=== PATIENT | male | born 1925 | race Caucasian/White ===

== ENCOUNTER 2017-04-21 16:39 | Inpatient (IN) | payer OTHER, MEDICARE ==
[~2017-04-21] VITALS: Ht 180.3 cm; Wt 76.8 kg
[~2017-04-21 16:39] MED LIST: ASPI81TA82; CHOL1CAP6 PO; CLOP75 PO; FERR140T PO; ISOS20TA38 PO; LIPI80TA16 PO; PROS5TAB2 PO; VITA50TA10 PO
[2017-04-21 17:07] VITALS: BP 170/72; PULSE 52; RESP 18; TEMP 98.3; O2SAT 100
--- NOTE | 2017-04-21 18:56 | RADRPT ---
EXAM DATE/TIME: 04/21/2017 18:14 [facility] COMPARISON: No previous studies available for comparison. INDICATIONS : Left hip pain after fall. MEDICAL HISTORY : None. SURGICAL HISTORY : None. ENCOUNTER: Initial ACUITY: 1 day PAIN SCORE: 10/10 LOCATION: Left hip. FINDINGS: There is a subcapital left femoral neck fracture. The femoral head is aligned with the acetabulum. No other fracture is seen. CONCLUSION: Left subcapital femoral neck fracture. Ted Schneider MD on April 21, 2017 at 18:53 Board Certified Radiologist. This report was verified electronically.
--- NOTE | 2017-04-21 18:57 | RADRPT ---
EXAM DATE/TIME: 04/21/2017 18:14 [facility] COMPARISON: CHEST PA & LAT, August 25, 2015, 23:52. CHEST SINGLE AP, July 04, 2012, 21:08. INDICATIONS : Short of breath. MEDICAL HISTORY : Hypertension. SURGICAL HISTORY : CABG. ENCOUNTER: Initial ACUITY: 1 day PAIN SCORE: 0/10 LOCATION: Bilateral chest FINDINGS: The patient is status post sternotomy. The cardiac silhouette is not enlarged. The lungs are hyperinf lated. There is diffuse increased interstitial markings present. A significant effusion is not seen. There is vague persistent density in the left apex. CONCLUSION: Hyperinflated lungs with diffuse increased interstitial markings which may represent underlying proce sses such as edema. Ted Schneider MD on April 21, 2017 at 18:54 Board Certified Radiologist. This report was verified electronically.
[2017-04-21] MEDS ORDERED: ONDANSETRON HCL 4 MG/2 ML VIAL IV PUSH ONE (19:30)
[2017-04-21] MEDS ORDERED: MORPHINE SULFATE 4 MG/ML INJ IV PUSH ONE (19:30)
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
[2017-04-21 19:47] VITALS: BP 175/97; PULSE 57; RESP 24; O2SAT 97
[2017-04-21 21:07] LABS: AUTOMATED NEUTROPHIL # 8.4 TH/MM3 (1.8-7.7); BASOPHIL % 0.2 % (0.0-2.0); BLOOD, URINE NEG (NEG); COMMENT (UR) CULT NOT INDICATED; CULTURE IF INDICATED CULT NOT INDICATED; EOSINOPHIL # 0.1 TH/MM3 (0-0.4); EOSINOPHIL % 0.7 % (0.0-4.0); GLUCOSE,URINE NEG (NEG); HEMATOCRIT 39.9 % (39.0-51.0); HEMO FLAGS DIFF FINAL; KETONE, URINE NEG (NEG); LYMPH % 10.5 % (9.0-44.0); LYMPHOCYTE # 1.1 TH/MM3 (1.0-4.8); MEAN CELL VOLUME 93.6 FL (80.0-100.0); MEAN CORPUSCULAR HEMOGLOBIN 31.7 PG (27.0-34.0); MEAN CORPUSCULAR HGB CONC 33.9 % (32.0-36.0); NEUT % 83.6 % (16.0-70.0); NITRITE,URINE NEG (NEG); PLATELET COUNT 140 TH/MM3 (150-450); RED BLOOD COUNT 4.26 MIL/MM3 (4.50-5.90); RED CELL DISTRIBUTION WIDTH 13.8 % (11.6-17.2); URINE COLOR YELLOW (YELLW/STRAW)
[2017-04-21 21:26] LABS: APTT (PATIENT) 25.4 SEC (24.3-30.1); PROTHROMBIN TIME - PATIENT 11.6 SEC (9.8-11.6)
[2017-04-21] MEDS ORDERED: ISOS20TA PO (21:27)
[2017-04-21] MEDS ORDERED: POTA10CA PO (21:27)
[2017-04-21] MEDS ORDERED: DOXA1TAB34 PO (21:27)
[2017-04-21] MEDS ORDERED: ATOR40TA16 PO (21:27)
[2017-04-21] MEDS ORDERED: FERR325T8 PO (21:27)
[2017-04-21] MEDS ORDERED: FINA5TAB2 PO (21:27)
[2017-04-21] MEDS ORDERED: ASPI81CH CHEW (21:27)
[2017-04-21 21:33] LABS: BICARBONATE 23.2 MEQ/L (21.0-32.0); MAGNESIUM 2.1 MG/DL (1.5-2.5); POTASSIUM 4.3 MEQ/L (3.5-5.1)
[2017-04-21] MEDS ORDERED: SODIUM CHLORIDE 0.9% FLUSH 10 ML FLUSH IV FLUSH PRN (22:15)
[2017-04-21] MEDS ORDERED: NALOXONE HCL 0.4 MG/ML AMP IV PUSH PRN (22:15)
[2017-04-21 23:00] VITALS: BP 157/72; PULSE 63; RESP 18; TEMP 96.9; O2SAT 94
[2017-04-21 23:23] VITALS: BP 157/72; PULSE 63; RESP 18; TEMP 96.9; O2SAT 94
[2017-04-21] MEDS: MORPHINE SULFATE 4 MG/ML INJ IV PUSH PRN (23:49)
[2017-04-22] VITALS (7 sets, daily range): BP systolic 121–140; BP diastolic 48–62; PULSE 47–97; RESP 16–57; TEMP 96.1–98.6; O2SAT 92–100
[2017-04-22] MEDS ORDERED: POVIDONE IODINE 5% (ANTISEPSIS KIT) 4 APPLICATIONS EACH NARE PRN (04:00)
[2017-04-22] MEDS ORDERED: INSULIN HUMAN REGULAR 1,000 UNITS/10 ML VIAL SQ PRN (04:00)
[2017-04-22] MEDS ORDERED: CHLORHEXIDINE GLUCONATE 2 % 1 PACK (2 CLOTHS) TOPICAL PRN (04:00)
[2017-04-22] MEDS ORDERED: LACTATED RINGER'S 1000 ML IV PRN (04:00)
[2017-04-22] MEDS ORDERED: SODIUM CHLORID 0.9% 500 ML IV PRN (04:00)
[2017-04-22] MEDS: MORPHINE SULFATE 4 MG/ML INJ IV PUSH PRN (04:44)
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
[2017-04-22] MEDS ORDERED: VITA2000 PO (06:47)
[2017-04-22] MEDS ORDERED: HYDR-3580 PO (06:47)
[2017-04-22] MEDS ORDERED: ERGO1CAP30 PO (06:47)
[2017-04-22] MEDS ORDERED: CALCTAB19 PO (06:47)
[2017-04-22] MEDS ORDERED: XARE10TA PO (06:47)
[2017-04-22] MEDS ORDERED: WALKER/ADULT/FO1 MIS (06:47)
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
--- NOTE | 2017-04-22 08:42 | HHI.PR ---
Subjective Remarks in no acute distress. pain is fairly controlled. no chest pain or sob. Objective Vitals Vital Signs Date Time Temp Pulse Resp B/P (MAP) Pulse Ox O2 Delivery O2 Flow Rate FiO2 04/22/17 04:10 96.2 50 18 121/52 (75) 95 04/22/17 00:00 Room Air 04/21/17 23:23 96.9 63 18 157/72 (100) 94 04/21/17 23:00 04/21/17 19:47 57 24 175/97 (123) 97 Room Air 04/21/17 17:07 98.3 52 18 170/72 (104) 100 I/O 04/21/17 04/21/17 04/21/17 04/22/17 04/22/17 04/22/17 07:00 15:00 23:00 07:00 15:00 23:00 Intake Total 360 ml Output Total 150 ml Balance 210 ml Intake Oral 360 ml Output Urine Total 150 ml # Voids 1 # Bowel Movements 0 Result Diagram: 04/21/17201904/21/172019 Imaging Last Impressions Hip and Pelvis X-Ray 04/21/17 0000 Signed Impressions: Service Date/Time: Friday, April 21, 2017 18:14 - CONCLUSION: Left subcapital femoral neck fracture. Ted Schneider MD Chest X-Ray 04/21/17 0000 Signed Impressions: Service Date/Time: Friday, April 21, 2017 18:14 - CONCLUSION: Hyperinflated lungs with diffuse increased interstitial markings which may represent underlying processes such as edema. Ted Schneider MD Objective Remarks GENERAL: This is a well-nourished, well-developed patient, in no apparent distress. CARDIOVASCULAR: Regular rate and regular rhythm without murmurs, gallops, or rubs. RESPIRATORY: Clear to auscultation. Breath sounds equal bilaterally. No wheezes , rales, or rhonchi. GASTROINTESTINAL: Abdomen soft, non-tender, nondistended. Normal, active bowel sounds MUSCULOSKELETAL: Extremities without clubbing, cyanosis, or edema. NEURO: Alert & Oriented x4 to person, place, time, situation. Moves all ext x4 Medications and IVs Current Medications Morphine Sulfate (Morphine Inj) 4 mg ONCE ONCE IV PUSH Last administered on t 20:50; Start 04/21/17 at 19:30; Stop 04/21/17 at 19:31; Status DC Ondansetron HCl (Zofran Inj) 4 mg ONCE ONCE IV PUSH Last administered on 20:50; Start 04/21/17 at 19:30; Stop 04/21/17 at 19:31; Status DC Sodium Chloride (NS Flush) 2 ml UNSCH PRN IV FLUSH FLUSH AFTER USING IV ACCESS ; Start 04/21/17 at 22:15 Sodium Chloride (NS Flush) 2 ml BID IV FLUSH ; Start 04/22/17 at 09:00 Naloxone HCl (Narcan Inj) 0.4 mg UNSCH PRN IV PUSH SEE LABEL COMMENTS; Start 04/21/17 at 22:15 Morphine Sulfate (Morphine Inj) 2 mg Q3H PRN IV PUSH pain >5 Last administered on 04/22/17 04:44; Start 04/21/17 at 22:15 Lactated Ringer's 1,000 ml @ 30 mls/hr Q24H PRN IV SEE LABEL COMMENTS; Start 04/22/17 at 04:00; Stop 04/25/17 at 03:59 Sodium Chloride 500 ml @ 30 mls/hr [id number] PRN IV SEE LABEL COMMENTS; Start at 04:00; Stop 04/25/17 at 03:59 Povidone Iodine (Betadine 5% Antisepsis Kit) 1 applic NIGHT ASSISTANT PRN EACH NARE SEE LABEL COMMENTS; Start 04/22/17 at 04:00; Stop 04/25/17 at 03:59 Chlorhexidine Gluconate (Chlorhexidine 2% Cloth) 3 pack NIGHT ASSISTANT PRN TOPICAL SEE LABEL COMMENTS; Start 04/22/17 at 04:00; Stop 04/25/17 at 03:59 Insulin Human Regular (NovoLIN R INJ) See Protocol Table ... NIGHT ASSISTANT PRN SQ SEE PROTOCOL TABLE; Start 04/22/17 at 04:00; Stop 04/25/17 at 03:59 A/P Assessment and Plan A/P - left femoral fracture continue pain control- ortho consult appreciated and plan for surgical repair today. -CAD- s/p CABG hold aspirin and Xarelto for now- resume imdur and statin -DVT prophylaxis- pending ortho evaluation Ever Moore MD Apr 22, 2017 08:42
[2017-04-22] MEDS ORDERED: FINASTERIDE 5 MG TAB PO SCH (09:00)
[2017-04-22] MEDS ORDERED: ISOSORBIDE MONONITRATE 20 MG TAB PO SCH (09:00)
[2017-04-22 10:06] LABS: BASOPHIL % 0.4 % (0.0-2.0); EOSINOPHIL # 0.4 TH/MM3 (0-0.4); EOSINOPHIL % 4.4 % (0.0-4.0); HEMATOCRIT 37.4 % (39.0-51.0); HEMO FLAGS DIFF FINAL; LYMPH % 13.5 % (9.0-44.0); LYMPHOCYTE # 1.1 TH/MM3 (1.0-4.8); MEAN CELL VOLUME 94.8 FL (80.0-100.0); MEAN CORPUSCULAR HEMOGLOBIN 32.5 PG (27.0-34.0); MEAN CORPUSCULAR HGB CONC 34.3 % (32.0-36.0); MONO % 10.1 % (0.0-8.0); NEUT % 71.6 % (16.0-70.0); PLATELET COUNT 116 TH/MM3 (150-450); RED BLOOD COUNT 3.94 MIL/MM3 (4.50-5.90); RED CELL DISTRIBUTION WIDTH 13.9 % (11.6-17.2); WHITE BLOOD COUNT 8.4 TH/MM3 (4.0-11.0)
[2017-04-22] MEDS: SODIUM CHLORIDE 0.9% FLUSH 10 ML FLUSH IV FLUSH SCH ×2 (10:30→21:00)
[2017-04-22 10:32] LABS: BICARBONATE 24.5 MEQ/L (21.0-32.0); POTASSIUM 3.9 MEQ/L (3.5-5.1)
[2017-04-22] MEDS ORDERED: ceFAZolin 2 GM PREMIX 50 ML ONE (11:27)
[2017-04-22] MEDS ORDERED: VANCOMYCIN HCL 1000 MG VIAL ONE (11:28)
[2017-04-22] MEDS ORDERED: GENTAMICIN SULFATE 80 MG/2 ML VIAL ONE (11:28)
[2017-04-22] MEDS ORDERED: ACETAMINOPHEN 1000 MG/100 ML 100 ML IV ONE (11:28)
[2017-04-22] MEDS ORDERED: FAMOTIDINE 20 MG/2 ML VIAL ONE (11:28)
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
[2017-04-22] MEDS ORDERED: TRANEXAMIC ACID IV SCH (12:00)
[2017-04-22] MEDS ORDERED: SODIUM CHLORIDE 0.9% IV SCH (12:00)
[2017-04-22] MEDS ORDERED: GLYCOPYRROLATE 1 MG/5 ML SYRINGE IV PUSH ONE (12:00)
[2017-04-22] MEDS ORDERED: DEXAMETHASONE SOD PHOS 4 MG/ML VIAL IV ONE (12:00)
[2017-04-22] MEDS ORDERED: PROPOFOL 200 MG/20 ML AMP IV ONE (12:00)
[2017-04-22] MEDS ORDERED: ePHEDrine/NS 25 MG/5 ML SYR IV ONE (12:00)
[2017-04-22] MEDS ORDERED: ROCURONIUM INJ 50 MG/5 ML SYRINGE IV PUSH ONE (12:00)
[2017-04-22] MEDS ORDERED: PHENYLEPH/NS 1000 MCG/10 ML SYR IV ONE (12:00)
[2017-04-22] MEDS ORDERED: NEOSTIGMINE 3 MG/3 ML SYR IV ONE (12:00)
[2017-04-22] MEDS ORDERED: MIDAZOLAM HCL 2 MG/2 ML VIAL IV ONE (12:00)
[2017-04-22] MEDS ORDERED: SODIUM CHLORIDE 0.9% FLUSH 5 ML FLUSH IVF PRN (12:45)
[2017-04-22] MEDS ORDERED: MORPHINE SULFATE 4 MG/ML INJ IV PUSH PRN (12:45)
[2017-04-22] MEDS ORDERED: Post-op Orders (for Pharmacy) MISC XX ONE (12:45)
--- NOTE | 2017-04-22 12:47 | PD.OP ---
cc: Aneesh Devlin MD Operative Report Date of Surgery: Apr 22, 2017 Preoperative Diagnosis: Left femoral neck fracture Postoperative Diagnosis: Procedure: Left hip bipolar arthroplasty Anesthesia: Gen. Surgeon: Aneesh Devlin Saw Feeder(s): KAZ Remy PA-C The surgical procedure was assisted by my physician seo assistant. My P.A. presence was necessary throughout this case for the manipulation and positioning of the surgical extremity. My P.A. was assisting me throughout the duration of this procedure. The skill set of a physician seo assistant was medically necessary to complete this procedure. During the surgical case the surgical endoscopist was working at the back table and the physician seo assistant was directly assisting me. Operation and Findings: PLAN OF ACTIVITY Weight bear as tolerated. IMPLANTS USED DePuy Corail size [15] stem with size [53] bipolar head and [+1] neck. DRAIN: 7 mm Reggie-Goncalves drain DETAILS OF PROCEDURE This patient was brought into the operating room and placed on the OR table. The patient was given anesthesia. The patient received IV antibiotics. The patient was then placed in lateral decubitus position. The hip and leg were prepped with alcohol, followed by Hibiclens and draped in a usual sterile fashion. Clean air was used for this procedure. Time out procedure was performed. The procedure began with a 5 inch incision over the posterolateral hip. The subcutaneous tissue was dissected with the Bovie. The iliotibial band were split in line with fibers. The Charnley retractor was placed. The piriformis and external rotators were released from the femur and tagged with a #1 Vicryl suture. The capsule is now incised and tagged with #1 Vicryl. The femoral neck fracture was now visualized. A corkscrew was now used to remove the femoral head. The femoral head was sized and measured. Soft tissue was now protected. The hip skid was placed underneath the femoral neck. An oscillating saw was used to make a femoral neck cut. At this point attention was turned to preparation of the proximal femur. A box osteotome was used to remove the lateral cortex of the femoral neck. The T- handle reamer was used to open the femoral canal. Next, the canal was broached. A lateralizing reamer was used to help lateralize the prosthesis. At this point a trial head and neck were placed. The hip was reduced. The patient was found to have excellent stability with good range of motion. Trial components were removed. Soft tissue and bone were thoroughly irrigated. A Corail stem was now opened. The stem was now impacted into the proximal femur. Care was taken to keep appropriate anteversion. The head and neck were now impacted onto the stem. The hip was again reduced. The hip was found to have good range of motion and good stability. Leg lengths were clinically equal. The wound was thoroughly irrigated. The capsule, piriformis and iliotibial band were closed with #1 Vicryl. Subcutaneous tissue was closed with 3-0 Vicryl. The skin was closed with nae. A sterile dressing was applied with Primapore. The patient was placed into a knee immobilizer. The patient was awakened and transferred to the recovery room in stable condition. Needle and sponge counts were correct. Aneesh Devlin MD Apr 22, 2017 12:47
[2017-04-22] MEDS ORDERED: DO NOT ADM ANY ANTICOAGULANT DRUGS PRN (13:02)
[2017-04-22] MEDS ORDERED: ERGOCALCIFEROL (VIT D2) 50,000 UNIT CAP PO ONE (13:15)
[2017-04-22] MEDS ORDERED: *ENALAPRILAT 1.25 MG/ML VIAL PERIprocedural Use ONLY ONE (13:31)
[2017-04-22] MEDS ORDERED: *morphine SULFATE 8 MG/ML PERIprocedure ONLY ONE (14:06)
--- NOTE | 2017-04-22 14:27 | RADRPT ---
EXAM DATE/TIME: 04/22/2017 13:30 [facility] COMPARISON: HIP LEFT (AP&LAT 2/3VWS) W AP PELVIS, April 21, 2017, 18:14. INDICATIONS : Post op left hip surgery. MEDICAL HISTORY : Unobtainable. SURGICAL HISTORY : Unobtainable. ENCOUNTER: Initial ACUITY: 1 day PAIN SCORE: Non-responsive. LOCATION: Left hip FINDINGS: Interval left hip arthroplasty. Arthroplasty components are in anatomic alignment. No new acute bony fractures. Postsurgical soft tissue changes in the left hip region. CONCLUSION: 1. Status post left hip arthroplasty in anatomic alignment without significant acute bony fracture. Sachin George MD on April 22, 2017 at 14:25 Board Certified Radiologist. This report was verified electronically.
--- NOTE | 2017-04-22 16:42 | EKG ---
Date Performed: 04/22/2017 Time Performed: 05:38:14 PTAGE: 89 years EKG: Sinus bradycardia with borderline 1st degree A-V block Prolonged QT interval Consider left atrial abnormality Possible septal infarct - age undetermined Inferior/lateral T wave changes are non specific Compared to prior tracing no significant change Abnormal ECG PREVIOUS TRACING : 08/25/15 @ 2230 DOCTOR: Glenis Sage Interpretating Date/Time 04/22/2017 16:39:20
[2017-04-22] MEDS: SODIUM CHLORIDE 0.9% FLUSH 5 ML FLUSH IVF SCH (21:00)
[2017-04-22] MEDS: DOXAZOSIN MESYLATE 4 MG TAB PO SCH (21:32)
[2017-04-22] MEDS: ATORVASTATIN 40 MG TAB PO SCH (21:32)
[2017-04-23] VITALS (8 sets, daily range): BP systolic 105–136; BP diastolic 50–58; PULSE 50–65; RESP 16–18; TEMP 97.1–98.2; O2SAT 92–95
[2017-04-23] MEDS: ceFAZolin 2 GM PREMIX 50 ML IV SCH ×2 (01:49→06:38)
[2017-04-23 06:17] LABS: HEMATOCRIT 35.1 % (39.0-51.0)
[2017-04-23 06:21] LABS: REVIEW FLAG FINAL
[2017-04-23] MEDS: ISOSORBIDE MONONITRATE 30 MG TAB PO SCH (06:38)
--- NOTE | 2017-04-23 06:50 | PD.ORT.PN ---
Subjective Subjective Remarks Resting comfortably with no new complaints. Objective Vitals Vital Signs Date Time Temp Pulse Resp B/P (MAP) Pulse Ox O2 Delivery O2 Flow Rate FiO2 04/23/17 05:25 97.6 55 17 136/53 (80) 92 04/23/17 01:47 97.5 50 17 133/54 (80) 92 04/22/17 21:04 97.6 50 17 133/54 (80) 92 04/22/17 19:08 Nasal Cannula 2.00 04/22/17 16:45 96.1 57 57 133/48 (76) 98 04/22/17 16:00 96.5 49 16 140/49 (79) 100 04/22/17 15:05 97 Nasal Cannula 3.00 04/22/17 14:15 97.5 53 15 155/65 (95) 99 Nasal Cannula 3 04/22/17 14:00 54 15 153/70 (97) 99 Nasal Cannula 3 04/22/17 13:45 55 15 176/72 (106) 99 Nasal Cannula 3 04/22/17 13:30 58 15 155/67 (96) 99 Nasal Cannula 3 04/22/17 13:15 56 15 176/74 (108) 99 Simple Mask 6 04/22/17 13:09 97.5 58 15 176/72 (106) 99 Simple Mask 6 04/22/17 08:00 97.3 47 18 137/62 (87) 97 I/O 04/22/17 04/22/17 04/22/17 04/23/17 04/23/17 04/23/17 07:00 15:00 23:00 07:00 15:00 23:00 Intake Total 360 ml 750 ml 240 ml 266 ml Output Total 150 ml 750 ml 70 ml 410 ml Balance 210 ml 0 ml 170 ml -144 ml Intake Oral 360 ml 240 ml 120 ml IV Total 50 ml 146 ml Other 700 ml Output Urine Total 150 ml 600 ml 350 ml Drainage Total 70 ml 60 ml Estimated Blood Loss 150 ml # Voids 1 1 # Bowel Movements 0 0 0 Result Diagram: 04/23/17 0551 04/22/17 0820 Imaging Last 24 hours Impressions Hip and Pelvis X-Ray 04/22/17 1243 Signed Impressions: Service Date/Time: Saturday, April 22, 2017 13:30 - CONCLUSION: 1. Status post left hip arthroplasty in anatomic alignment without significant acute bony fracture. Sachin George MD Objective Remarks Left lower extremity: Clean dry dressings intact with drain in place. Knee immobilizer. Distally intact sensation good capillary refills and strong dorsiflexion plantar flexion of foot Assessment & Plan Assessment and Plan Left hip hemiarthroplasty POD 1 Physical therapy: Weightbearing as tolerated with posterior hip precautions Knee immobilizer when in bed Lovenox Incentive spirometry and SCDs Discharge planning to rehabilitation for tomorrow or Friday Begin daily dressing changes POD 2 with removal of drain Follow-up with Dr. Devlin or PA in 2 weeks Valentin Rayo Jr. Apr 23, 2017 06:50
[2017-04-23] MEDS ORDERED: ISOSORBIDE MONONITRATE 20 MG TAB PO SCH (08:53)
[2017-04-23] MEDS: CHOLECALCIFEROL (VIT D3) 5000 UNIT CAP PO SCH (08:56)
[2017-04-23] MEDS: FINASTERIDE 5 MG TAB PO SCH (08:56)
[2017-04-23] MEDS: SODIUM CHLORIDE 0.9% FLUSH 10 ML FLUSH IV FLUSH SCH ×2 (08:57→21:00)
[2017-04-23] MEDS: SODIUM CHLORIDE 0.9% FLUSH 5 ML FLUSH IVF SCH ×2 (08:57→21:00)
--- NOTE | 2017-04-23 11:20 | HHI.PR ---
Subjective Remarks resting comfortably in no distress. pain is controlled. no new complaints. Objective Vitals Vital Signs Date Time Temp Pulse Resp B/P (MAP) Pulse Ox O2 Delivery O2 Flow Rate FiO2 04/23/17 08:00 97.1 56 18 130/58 (82) 95 04/23/17 05:25 97.6 55 17 136/53 (80) 92 04/23/17 01:47 97.5 50 17 133/54 (80) 92 04/22/17 21:04 97.6 50 17 133/54 (80) 92 04/22/17 19:08 Nasal Cannula 2.00 04/22/17 16:45 96.1 57 57 133/48 (76) 98 04/22/17 16:00 96.5 49 16 140/49 (79) 100 04/22/17 15:05 97 Nasal Cannula 3.00 04/22/17 14:15 97.5 53 15 155/65 (95) 99 Nasal Cannula 3 04/22/17 14:00 54 15 153/70 (97) 99 Nasal Cannula 3 04/22/17 13:45 55 15 176/72 (106) 99 Nasal Cannula 3 04/22/17 13:30 58 15 155/67 (96) 99 Nasal Cannula 3 04/22/17 13:15 56 15 176/74 (108) 99 Simple Mask 6 04/22/17 13:09 97.5 58 15 176/72 (106) 99 Simple Mask 6 I/O 04/22/17 04/22/17 04/22/17 04/23/17 04/23/17 04/23/17 07:00 15:00 23:00 07:00 15:00 23:00 Intake Total 360 ml 750 ml 240 ml 266 ml 50 ml Output Total 150 ml 750 ml 70 ml 410 ml Balance 210 ml 0 ml 170 ml -144 ml 50 ml Intake Oral 360 ml 240 ml 120 ml IV Total 50 ml 146 ml 50 ml Other 700 ml Output Urine Total 150 ml 600 ml 350 ml Drainage Total 70 ml 60 ml Estimated Blood Loss 150 ml # Voids 1 1 # Bowel Movements 0 0 0 Result Diagram: 04/23/17 0551 04/22/17 0820 Imaging Last Impressions Hip and Pelvis X-Ray 04/22/17 1243 Signed Impressions: Service Date/Time: Saturday, April 22, 2017 13:30 - CONCLUSION: 1. Status post left hip arthroplasty in anatomic alignment without significant acute bony fracture. Sachin George MD Chest X-Ray 04/21/17 0000 Signed Impressions: Service Date/Time: Friday, April 21, 2017 18:14 - CONCLUSION: Hyperinflated lungs with diffuse increased interstitial markings which may represent underlying processes such as edema. Ted Schneider MD Objective Remarks GENERAL: This is a well-nourished, well-developed patient, in no apparent distress. CARDIOVASCULAR: Regular rate and regular rhythm without murmurs, gallops, or rubs. RESPIRATORY: Clear to auscultation. Breath sounds equal bilaterally. No wheezes , rales, or rhonchi. GASTROINTESTINAL: Abdomen soft, non-tender, nondistended. Normal, active bowel sounds MUSCULOSKELETAL: Extremities without clubbing, cyanosis, or edema. NEURO: Alert & Oriented x4 to person, place, time, situation. Moves all ext x4 Procedures left hip bipolar arthroplasty Medications and IVs Current Medications Morphine Sulfate (Morphine Inj) 4 mg ONCE ONCE IV PUSH Last administered on 20:50; Start 04/21/17 at 19:30; Stop 04/21/17 at 19:31; Status DC Ondansetron HCl (Zofran Inj) 4 mg ONCE ONCE IV PUSH Last administered on 20:50; Start 04/21/17 at 19:30; Stop 04/21/17 at 19:31; Status DC Sodium Chloride (NS Flush) 2 ml UNSCH PRN IV FLUSH FLUSH AFTER USING IV ACCESS ; Start 04/21/17 at 22:15 Sodium Chloride (NS Flush) 2 ml BID IV FLUSH Last administered on 04/23/17 08: 57; Start 04/22/17 at 09:00 Naloxone HCl (Narcan Inj) 0.4 mg UNSCH PRN IV PUSH SEE LABEL COMMENTS; Start 04/21/17 at 22:15 Morphine Sulfate (Morphine Inj) 2 mg Q3H PRN IV PUSH pain >5 Last administered on 04/22/17 04:44; Start 04/21/17 at 22:15; Stop 04/22/17 at 13:02; Status DC Lactated Ringer's 1,000 ml @ 50 mls/hr Q20H PRN IV SEE LABEL COMMENTS; Start 04/22/17 at 04:00; Stop 04/25/17 at 03:59 Sodium Chloride 500 ml @ 30 mls/hr [id number] PRN IV SEE LABEL COMMENTS; Start at 04:00; Stop 04/25/17 at 03:59 Povidone Iodine (Betadine 5% Antisepsis Kit) [address] [employer] PRN EACH NARE SEE LABEL COMMENTS; Start 04/22/17 at 04:00; Stop 04/25/17 at 03:59 Chlorhexidine Gluconate (Chlorhexidine 2% Cloth) [address] [employer] PRN TOPICAL SEE LABEL COMMENTS; Start 04/22/17 at 04:00; Stop 04/25/17 at 03:59 Insulin Human Regular (NovoLIN R INJ) See Protocol Table ... STREET [employer] PRN SQ SEE PROTOCOL TABLE; Start 04/22/17 at 04:00; Stop 04/25/17 at 03:59 Atorvastatin Calcium (Lipitor) 40 mg HS PO Last administered on 04/22/17 21:32 ; Start 04/22/17 at 21:00 Doxazosin Mesylate (Cardura) 4 mg HS PO Last administered on 04/22/17 21:32; Start 04/22/17 at 21:00 Finasteride (Proscar) 20 mg DAILY PO ; Start 04/22/17 at 09:00; Stop 04/22/17 at 09:14; Status DC Isosorbide Mononitrate (Ismo) 30 mg DAILY PO ; Start 04/22/17 at 09:00; Stop at 09:00; Status DC Isosorbide Mononitrate (Ismo) 30 mg DAILY@0700 PO ; Start 04/23/17 at 08:53; Stop 04/23/17 at 08:53; Status DC Finasteride (Proscar) 5 mg DAILY PO Last administered on 04/23/17 08:56; Start 04/23/17 at 09:00 Isosorbide Mononitrate (Imdur) 30 mg DAILY@07 PO Last administered on 06:38; Start 04/23/17 at 07:00 Cefazolin Sodium/ Dextrose 50 ml @ As Directed STK-MED ONCE .ROUTE Last administered on 10/3/17at 12:08; Start 04/22/17 at 11:27; Stop 04/22/17 at 11:28 ; Status DC Gentamicin Sulfate (Gentamicin Inj) 240 mg STK-MED ONCE .ROUTE Last administered on 04/22/17 12:15; Start 04/22/17 at 11:28; Stop 04/22/17 at 11:29 ; Status DC Vancomycin HCl (Vancomycin Inj) 1,000 mg STK-MED ONCE .ROUTE Last administered on 04/22/17 12:10; Start 04/22/17 at 11:28; Stop 04/22/17 at 11:29; Status DC Acetaminophen 100 ml @ As Directed STK-MED ONCE IV ; Start 04/22/17 at 11:28; Stop 04/22/17 at 11:29; Status DC Famotidine (Pepcid Inj) 20 mg STK-MED ONCE .ROUTE ; Start 04/22/17 at 11:28; Stop 04/22/17 at 11:29; Status DC Tranexamic Acid 1160 mg/Sodium Chloride 111.6 ml @ 200 mls/hr UNSCH IV ; Start 04/22/17 at 12:00; Stop 04/22/17 at 18:00; Status DC IV Flush (NS Flush) 2 ml UNSCH PRN IVF FLUSH AFTER USING IV ACCESS; Start 04/22 at 12:45 IV Flush (NS Flush) 2 ml BID IVF Last administered on 04/22/17 21:00; Start 04/22/17 at 21:00 Cefazolin Sodium/ Dextrose 50 ml @ 100 mls/hr Q6H IV Last administered on 04/23 06:38; Start 04/22/17 at 18:00; Stop 04/23/17 at 06:29; Status DC Miscellaneous Information (Post-op Orders (for Pharmacy)) STAT ONCE XX ; Start 04/22/17 at 12:45; Stop 04/22/17 at 13:52; Status DC Enoxaparin Sodium (Lovenox Inj) 30 mg Q24H SQ ; Start 04/23/17 at 13:00 Acetaminophen/ Hydrocodone Bitart ([place] 5-325 Mg) 1 tab Q3H PRN PO PAIN 3<10 ; Start 04/22/17 at 12:45 Morphine Sulfate (Morphine Inj) 3 mg Q3H PRN IV PUSH break thru pain Last administered on 04/23/17 01:50; Start 04/22/17 at 12:45 Ergocalciferol (Drisdol) 50,000 units ONCE ONCE PO Last administered on 18:57; Start 04/22/17 at 13:15; Stop 04/22/17 at 13:16; Status DC Cholecalciferol (Vitamin D3) 5,000 units DAILY PO Last administered on 08:56; Start 04/23/17 at 09:00 Enalaprilat (*VASOTEC INJ PERIprocedural Use ONLY) 1.25 mg STK-MED ONCE .ROUTE ; Start 04/22/17 at 13:31; Stop 04/22/17 at 13:32; Status DC Miscellaneous Information ALL NURSING DEPARTME... UNSCH PRN .XX SEE LABEL COMMENTS; Start 04/22/17 at 13:02; Stop 04/23/17 at 13:01 Morphine Sulfate (*morphine INJ PERIprocedure ONLY) 8 mg STK-MED ONCE .ROUTE Last administered on 04/22/17 14:06; Start 04/22/17 at 14:06; Stop 04/22/17 at 14:07; Status DC A/P Assessment and Plan A/P - left femoral fracture s/p left hip bipolar arthroplasty continue pain control- management per ortho. -CAD- s/p CABG resume aspirin and Xarelto when ok with ortho- resumed imdur and statin -DVT prophylaxis- on Lovenox- per ortho. Discharge Planning when cleared by ortho. Ever Moore MD Apr 23, 2017 11:20
[2017-04-23] MEDS: ENOXAPARIN SODIUM 30 MG/0.3 ML SYRINGE SQ SCH (13:30)
--- NOTE | 2017-04-23 16:04 | ECHRPT ---
Indication: CARDIAC MURMUR CONCLUSIONS Mildly dilated left ventricle. Mild concentric left ventricular hypertrophy. The left ventricular systolic function is normal with an estimated ejection fraction in the range of 55-60%. There is diffuse global hypokinesis with distinct regional wall motion abnormalities. The left atrial size is [id number] dilated. Trace mitral valve regurgitation. Aortic valve sclerosis is present. Mild aortic valve regurgitation. There is trace tricuspid valve regurgitation. There is mild pulmonary hypertension present (range 40-50 mmHg). BP: 137 / 62 HR: 47 Rhythm: Sinus Technical Quality:Fair FINDINGS LEFT VENTRICLE Mildly dilated left ventricle. Mild concentric left ventricular hypertrophy. The left ventricular systolic function is normal with an estimated ejection fraction in the range of 55-60%. There is diffuse global hypokinesis with distinct regional wall motion abnormalities. LEFT ATRIUM The left atrial size is [id number] dilated. MITRAL VALVE Trace mitral valve regurgitation. AORTIC VALVE Aortic valve sclerosis is present. Mild aortic valve regurgitation. TRICUSPID VALVE There is trace tricuspid valve regurgitation. There is estimated mild pulmonary hypertension present (range 40-50 mmHg). Deepak Tim MD, FACC (Electronically Signed) Final Date:23 April 2017 16:03
[2017-04-23] MEDS: ACETAMINOPHEN/HYDROcodone 325 MG/5 MG TAB PO PRN (16:29)
[2017-04-23] MEDS: ATORVASTATIN 40 MG TAB PO SCH (21:21)
[2017-04-23] MEDS: DOXAZOSIN MESYLATE 4 MG TAB PO SCH (21:21)
[2017-04-24 00:15] VITALS: BP 117/54; PULSE 57; RESP 16; TEMP 97.7; O2SAT 94
[2017-04-24 04:15] VITALS: BP 133/52; PULSE 60; RESP 16; TEMP 98.7; O2SAT 94
[2017-04-24] MEDS: ISOSORBIDE MONONITRATE 30 MG TAB PO SCH (06:47)
--- NOTE | 2017-04-24 06:50 | PD.ORT.PN ---
Subjective Subjective Remarks POD 2 s/p left hip hemiarthroplasty pain controlled. resting comfortably Objective Vitals Vital Signs Date Time Temp Pulse Resp B/P (MAP) Pulse Ox O2 Delivery O2 Flow Rate FiO2 04/24/17 04:15 98.7 60 16 133/52 (79) 94 04/24/17 00:15 97.7 57 16 117/54 (75) 94 04/23/17 21:38 95 Nasal Cannula 2.00 04/23/17 19:16 98.2 61 16 105/56 (72) 93 04/23/17 16:10 98.1 65 17 123/50 (74) 04/23/17 13:05 95 Nasal Cannula 2.00 04/23/17 11:35 97.7 59 18 136/51 (79) 95 04/23/17 08:00 97.1 56 18 130/58 (82) 95 I/O 04/23/17 04/23/17 04/23/17 04/24/17 04/24/17 04/24/17 07:00 15:00 23:00 07:00 15:00 23:00 Intake Total 266 ml 700 ml 120 ml Output Total 410 ml 250 ml 210 ml Balance -144 ml 450 ml -90 ml Intake Oral 120 ml 650 ml 120 ml IV Total 146 ml 50 ml Output Urine Total 350 ml 250 ml 150 ml Drainage Total 60 ml 60 ml # Bowel Movements 0 0 0 Result Diagram: 04/23/17 0551 04/22/17 0820 Imaging Last 24 hours Impressions Hip and Pelvis X-Ray 04/22/17 1243 Signed Impressions: Service Date/Time: Saturday, April 22, 2017 13:30 - CONCLUSION: 1. Status post left hip arthroplasty in anatomic alignment without significant acute bony fracture. Sachin George MD Objective Remarks Left lower extremity: Clean dry dressings intact with drain in place. Knee immobilizer. Distally intact sensation good capillary refills and strong dorsiflexion plantar flexion of foot Assessment & Plan Assessment and Plan 1) Left hip hemiarthroplasty POD 2 Physical therapy: Weightbearing as tolerated with posterior hip precautions Knee immobilizer when in bed Lovenox Incentive spirometry and SCDs ortho clear for Dc to rehab Begin daily dressing changes POD 2 with removal of drain Follow-up with Dr. Devlin or PA in 2 weeks Jeyson Lezama Apr 24, 2017 06:50
[2017-04-24 08:00] VITALS: BP 109/51; PULSE 56; RESP 18; TEMP 98.4; O2SAT 92
[2017-04-24] MEDS: SODIUM CHLORIDE 0.9% FLUSH 5 ML FLUSH IVF SCH (09:00)
[2017-04-24] MEDS: CHOLECALCIFEROL (VIT D3) 5000 UNIT CAP PO SCH (10:59)
[2017-04-24] MEDS: FINASTERIDE 5 MG TAB PO SCH (10:59)
[2017-04-24] MEDS: SODIUM CHLORIDE 0.9% FLUSH 10 ML FLUSH IV FLUSH SCH (11:00)
[2017-04-24] MEDS: ACETAMINOPHEN/HYDROcodone 325 MG/5 MG TAB PO PRN ×2 (11:01→13:54)
[2017-04-24] MEDS ORDERED: ASPI81CH CHEW (11:13)
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
--- NOTE | 2017-04-24 11:30 | HHI.PR ---
Subjective Remarks in no distress. pain is fairly controlled. d/w the RN and no acute issues over night. Objective Vitals Vital Signs Date Time Temp Pulse Resp B/P (MAP) Pulse Ox O2 Delivery O2 Flow Rate FiO2 04/24/17 08:00 98.4 56 18 109/51 (70) 92 04/24/17 04:15 98.7 60 16 133/52 (79) 94 04/24/17 00:15 97.7 57 16 117/54 (75) 94 04/23/17 21:38 95 Nasal Cannula 2.00 04/23/17 19:16 98.2 61 16 105/56 (72) 93 04/23/17 16:10 98.1 65 17 123/50 (74) 04/23/17 13:05 95 Nasal Cannula 2.00 04/23/17 11:35 97.7 59 18 136/51 (79) 95 I/O 04/23/17 04/23/17 04/23/17 04/24/17 04/24/17 04/24/17 07:00 15:00 23:00 07:00 15:00 23:00 Intake Total 266 ml 700 ml 120 ml 60 ml Output Total 410 ml 250 ml 210 ml 410 ml Balance -144 ml 450 ml -90 ml -350 ml Intake Oral 120 ml 650 ml 120 ml 60 ml IV Total 146 ml 50 ml Output Urine Total 350 ml 250 ml 150 ml 400 ml Drainage Total 60 ml 60 ml 10 ml # Bowel Movements 0 0 0 0 Result Diagram: 04/23/17 0551 04/22/17 0820 Imaging Last Impressions Hip and Pelvis X-Ray 04/22/17 1243 Signed Impressions: Service Date/Time: Saturday, April 22, 2017 13:30 - CONCLUSION: 1. Status post left hip arthroplasty in anatomic alignment without significant acute bony fracture. Sachin George MD Chest X-Ray 04/21/17 0000 Signed Impressions: Service Date/Time: Friday, April 21, 2017 18:14 - CONCLUSION: Hyperinflated lungs with diffuse increased interstitial markings which may represent underlying processes such as edema. Ted Schneider MD Objective Remarks GENERAL: This is a well-nourished, well-developed patient, in no apparent distress. CARDIOVASCULAR: Regular rate and regular rhythm without murmurs, gallops, or rubs. RESPIRATORY: Clear to auscultation. Breath sounds equal bilaterally. No wheezes , rales, or rhonchi. GASTROINTESTINAL: Abdomen soft, non-tender, nondistended. Normal, active bowel sounds MUSCULOSKELETAL: Extremities without clubbing, cyanosis, or edema. NEURO: Alert & Oriented x4 to person, place, time, situation. Moves all ext x4 Procedures left hip bipolar arthroplasty Medications and IVs Current Medications Morphine Sulfate (Morphine Inj) 4 mg ONCE ONCE IV PUSH Last administered on 20:50; Start 04/21/17 at 19:30; Stop 04/21/17 at 19:31; Status DC Ondansetron HCl (Zofran Inj) 4 mg ONCE ONCE IV PUSH Last administered on 20:50; Start 04/21/17 at 19:30; Stop 04/21/17 at 19:31; Status DC Sodium Chloride (NS Flush) 2 ml UNSCH PRN IV FLUSH FLUSH AFTER USING IV ACCESS ; Start 04/21/17 at 22:15 Sodium Chloride (NS Flush) 2 ml BID IV FLUSH Last administered on 04/23/17 08: 57; Start 04/22/17 at 09:00 Naloxone HCl (Narcan Inj) 0.4 mg UNSCH PRN IV PUSH SEE LABEL COMMENTS; Start 04/21/17 at 22:15 Morphine Sulfate (Morphine Inj) 2 mg Q3H PRN IV PUSH pain >5 Last administered on 04/22/17 04:44; Start 04/21/17 at 22:15; Stop 04/22/17 at 13:02; Status DC Lactated Ringer's 1,000 ml @ 50 mls/hr Q20H PRN IV SEE LABEL COMMENTS; Start 04/22/17 at 04:00; Stop 04/25/17 at 03:59 Sodium Chloride 500 ml @ 30 mls/hr [id number] PRN IV SEE LABEL COMMENTS; Start at 04:00; Stop 04/25/17 at 03:59 Povidone Iodine (Betadine 5% Antisepsis Kit) 1 applic [employer] PRN EACH NARE SEE LABEL COMMENTS; Start 04/22/17 at 04:00; Stop 04/25/17 at 03:59 Chlorhexidine Gluconate (Chlorhexidine 2% Cloth) 3 pack [employer] PRN TOPICAL SEE LABEL COMMENTS; Start 04/22/17 at 04:00; Stop 04/25/17 at 03:59 Insulin Human Regular (NovoLIN R INJ) See Protocol Table ... [employer] PRN SQ SEE PROTOCOL TABLE; Start 04/22/17 at 04:00; Stop 04/25/17 at 03:59 Atorvastatin Calcium (Lipitor) 40 mg HS PO Last administered on 04/23/17 21:21 ; Start 04/22/17 at 21:00 Doxazosin Mesylate (Cardura) 4 mg HS PO Last administered on 04/23/17 21:21; Start 04/22/17 at 21:00 Finasteride (Proscar) 20 mg DAILY PO ; Start 04/22/17 at 09:00; Stop 04/22/17 at 09:14; Status DC Isosorbide Mononitrate (Ismo) 30 mg DAILY PO ; Start 04/22/17 at 09:00; Stop at 09:00; Status DC Isosorbide Mononitrate (Ismo) 30 mg DAILY@0700 PO ; Start 04/23/17 at 08:53; Stop 04/23/17 at 08:53; Status DC Finasteride (Proscar) 5 mg DAILY PO Last administered on 04/23/17 08:56; Start 04/23/17 at 09:00 Isosorbide Mononitrate (Imdur) 30 mg DAILY@07 PO Last administered on 06:47; Start 04/23/17 at 07:00 Cefazolin Sodium/ Dextrose 50 ml @ As Directed STK-MED ONCE .ROUTE Last administered on 04/22/17 12:08; Start 04/22/17 at 11:27; Stop 04/22/17 at 11:28 ; Status DC Gentamicin Sulfate (Gentamicin Inj) 240 mg STK-MED ONCE .ROUTE Last administered on 04/22/17 12:15; Start 04/22/17 at 11:28; Stop 04/22/17 at 11:29 ; Status DC Vancomycin HCl (Vancomycin Inj) 1,000 mg STK-MED ONCE .ROUTE Last administered on 04/22/17 12:10; Start 04/22/17 at 11:28; Stop 04/22/17 at 11:29; Status DC Acetaminophen 100 ml @ As Directed STK-MED ONCE IV ; Start 04/22/17 at 11:28; Stop 04/22/17 at 11:29; Status DC Famotidine (Pepcid Inj) 20 mg STK-MED ONCE .ROUTE ; Start 04/22/17 at 11:28; Stop 04/22/17 at 11:29; Status DC Tranexamic Acid 1160 mg/Sodium Chloride 111.6 ml @ 200 mls/hr UNSCH IV ; Start 04/22/17 at 12:00; Stop 04/22/17 at 18:00; Status DC IV Flush (NS Flush) 2 ml UNSCH PRN IVF FLUSH AFTER USING IV ACCESS; Start 04/22 at 12:45 IV Flush (NS Flush) 2 ml BID IVF Last administered on 04/23/17 21:00; Start 04/22/17 at 21:00 Cefazolin Sodium/ Dextrose 50 ml @ 100 mls/hr Q6H IV Last administered on 04/23 06:38; Start 04/22/17 at 18:00; Stop 04/23/17 at 06:29; Status DC Miscellaneous Information (Post-op Orders (for Pharmacy)) STAT ONCE XX ; Start 04/22/17 at 12:45; Stop 04/22/17 at 13:52; Status DC Enoxaparin Sodium (Lovenox Inj) 30 mg Q24H SQ Last administered on 04/23/17 13 :30; Start 04/23/17 at 13:00 Acetaminophen/ Hydrocodone Bitart ([place] 5-325 Mg) 1 tab Q3H PRN PO PAIN 3<10 Last administered on 04/23/17 16:29; Start 04/22/17 at 12:45 Morphine Sulfate (Morphine Inj) 3 mg Q3H PRN IV PUSH break thru pain Last administered on 04/23/17 01:50; Start 04/22/17 at 12:45 Ergocalciferol (Drisdol) 50,000 units ONCE ONCE PO Last administered on 18:57; Start 04/22/17 at 13:15; Stop 04/22/17 at 13:16; Status DC Cholecalciferol (Vitamin D3) 5,000 units DAILY PO Last administered on 08:56; Start 04/23/17 at 09:00 Enalaprilat (*VASOTEC INJ PERIprocedural Use ONLY) 1.25 mg STK-MED ONCE .ROUTE ; Start 04/22/17 at 13:31; Stop 04/22/17 at 13:32; Status DC Miscellaneous Information ALL NURSING DEPARTME... UNSCH PRN .XX SEE LABEL COMMENTS; Start 04/22/17 at 13:02; Stop 04/23/17 at 13:01; Status DC Morphine Sulfate (*morphine INJ PERIprocedure ONLY) 8 mg STK-MED ONCE .ROUTE Last administered on 04/22/17 14:06; Start 04/22/17 at 14:06; Stop 04/22/17 at 14:07; Status DC A/P Assessment and Plan A/P - left femoral fracture s/p left hip bipolar arthroplasty continue pain control and rehab efforts. cleared by ortho for discharge. -CAD- s/p CABG resume Xarelto - resume aspirin when ok with ortho. - resumed imdur and statin -DVT prophylaxis- on Xrelto. Discharge Planning dc to rehab today. see med list. f/u; pcp and ortho. d/w the patient and RN. time spent 31 min. Ever Moore MD Apr 24, 2017 11:07
[2017-04-24 12:00] VITALS: BP 111/50; PULSE 58; RESP 18; TEMP 98; O2SAT 93
[2017-04-24] MEDS ORDERED: MAGNESIUM HYDROXIDE SUSP 30 ML CUP PO PRN (13:30)
[2017-04-24] MEDS: ENOXAPARIN SODIUM 30 MG/0.3 ML SYRINGE SQ SCH (13:53)
== END 2017-04-24 15:23 | DRG 470 ==
LOC: NEPC 16:39 → NEDA 22:00 → N06B 22:57
PROVIDERS: ADMIT Internal Medicine; ATTEND Internal Medicine
PROC: 0SRS01A Replacement of Left Hip Joint, Femoral Surface with Metal Synthetic Substitute, Uncemented, Open Approach (ICD-10-PCS; principal; 2017-04-22 11:41)
DX: S72.012A Unspecified intracapsular fracture of left femur, initial encounter for closed fracture (principal); Z95.1 Presence of aortocoronary bypass graft; E78.5 Hyperlipidemia, unspecified; I25.10 Atherosclerotic heart disease of native coronary artery without angina pectoris; Z79.82 Long term (current) use of aspirin; V19.9XXA Pedal cyclist (driver) (passenger) injured in unspecified traffic accident, initial encounter; Y93.89 Activity, other specified; Z85.72 Personal history of non-Hodgkin lymphomas; Z85.820 Personal history of malignant melanoma of skin
CPT/HCPCS: 71010; 73502; 80048; 81001; 82306; 83735; 85014; 85018; 85025; 85610; 85730; 86850; 86900; 86901; 93005; 93306; 96374; 96375; C1776; J0131; J0690; J1100; J1580; J1650; J2250; J2270; J2370; J2405; J2710; J3010; J3370; L1830